=== PATIENT | male | born 1995 | race Caucasian/White ===

== ENCOUNTER → 2019-10-27 | Emergency (ER) | payer OTHER ==
[~2019-10-27] VITALS: Ht 180.3 cm; Wt 72.6 kg
== END ==
LOC: ED 19:30
DX: S63.616A Unspecified sprain of right little finger, initial encounter (principal); Z88.2 Allergy status to sulfonamides; X58.XXXA Exposure to other specified factors, initial encounter
CPT/HCPCS: 73130; 99283-25